=== PATIENT | male | born 1980 | race Hispanic/Latino ===

== ENCOUNTER 2017-08-02 10:52 | Emergency (ER) | payer OTHER ==
[2017-08-02 11:00] VITALS: BMI 24.3
[2017-08-02] MEDS ORDERED: Iohexol 240 (50 ml) PO ONE (12:23)
[2017-08-02] MEDS ORDERED: Iohexol 240 (50 ml) ONE ×2 (12:32→13:02)
[2017-08-02 13:07] LABS: RBC URINE 1 /hpf (0-3); URINE BILIRUBIN NEGATIVE (NEGATIVE); URINE BLOOD NEGATIVE (NEGATIVE); URINE COLOR YELLOW (YELLOW); URINE GLUCOSE (UA) NEG (Normal); URINE KETONE NEGATIVE (NEGATIVE); URINE LEUKOCYTE ESTERASE NEG Leu/uL (Negative); URINE PROTEIN NEGATIVE (NEGATIVE); URINE UROBILINOGEN 0.2-1.0 mg/dL (0.2-1.0); WBC URINE 1 /hpf (0-5)
[2017-08-02 13:09] LABS: BASO % 0.8 % (0.0-2.0); EOS # 0.1 K/uL (0.0-0.7); EOS % 1.1 % (0.0-4.0); LYMPH # 1.5 K/uL (1.0-4.3); LYMPH % 29.5 % (20.0-40.0); MEAN CELL VOLUME 87.8 fl (80.0-94.0); MEAN CORPUSCULAR HEMOGLOBIN 29.4 pg (27.0-31.0); MEAN CORPUSCULAR HGB CONC 33.4 g/dL (33.0-37.0); MEAN PLATELET VOLUME 9.5 fl (7.2-11.7); MONO # 0.5 K/uL (0.0-0.8); MONO % 9.2 % (0.0-10.0); NEUT % 59.4 % (50.0-75.0); NRBC % 0.1 % (0.0-0.0)
[2017-08-02 13:16] LABS: ALB/GLOB RATIO 1.7 (1.0-2.1); ALKALINE PHOSPHATASE 78 U/L (38-126); ALT/SGPT 63 U/L (21-72); AMYLASE 69 U/L (30-110); AST/SGOT 47 U/L (17-59); BILIRUBIN,TOTAL 0.9 mg/dl (0.2-1.3); BLOOD UREA NITROGEN 14 mg/dl (9-20); CALCIUM 9.1 mg/dL (8.4-10.2); CARBON DIOXIDE 29 mmol/L (22-30); CHLORIDE 103 mmol/L (98-107); GFR AFRICAN-AMERICAN > 60; GLUCOSE,RANDOM 88 mg/dL (75-110); LIPASE 94 U/L (23-300); POTASSIUM 4.2 MMOL/L (3.6-5.0); SODIUM 141 mmol/l (132-148); TOTAL PROTEIN 7.3 G/DL (6.3-8.2)
--- NOTE | 2017-08-02 13:37 | ED PDOC ---
HPI: Abdomen Time Seen by Provider: 08/02/17 11:30 Chief Complaint (Nursing): Groin Pain History Per: Patient History/Exam Limitations: no limitations Onset/Duration Of Symptoms: Gradual (3 months worse today) Current Symptoms Are (Timing): Still Present Severity: Mild Location Of Pain/Discomfort: RLQ Quality Of Discomfort: Dull, Aching Associated Symptoms: denies: Fever, Chills, Nausea, Vomiting, Diarrhea, Loss Of Appetite, Back Pain, Chest Pain, Constipation, Urinary Symptoms Exacerbating Factors: Movement Alleviating Factors: None Last Bowel Movement: Today Additional History Per: Patient Additional Complaint(s): c/o pain to his right groin x 3 months, worsened yesterday, plays hockey. Patient was seen in [facility] today, advised ER evaluation to R/O appendicitis. no trauma no genital pain or discharge Past Medical History Reviewed: Historical Data, Nursing Documentation, Vital Signs Vital Signs: Last Vital Signs Temp 97.4 F L 08/02/17 11:00 Pulse 57 L 08/02/17 12:57 Resp 8 L 08/02/17 12:52 BP 114/65 08/02/17 12:57 Pulse Ox 100 08/02/17 13:38 - Medical History PMH: No Chronic Diseases - Family History Family History: States: Unknown Family Hx - Living Arrangements Living Arrangements: With Family - Social History Current smoker - smoking cessation education provided: No Alcohol: None Drugs: Denies - Allergies Allergies/Adverse Reactions: Allergies Allergy/AdvReac Type Severity Reaction Status Date / Time No Known Allergies Allergy Verified 08/02/17 11:17 Review of Systems ROS Statement: Except As Marked, All Systems Reviewed And Found Negative Constitutional: Negative for: Fever, Chills Cardiovascular: Negative for: Chest Pain, Palpitations Respiratory: Negative for: Cough, Shortness of Breath Gastrointestinal: Negative for: Nausea, Vomiting, Abdominal Pain Musculoskeletal: Negative for: Neck Pain Neurological: Negative for: Weakness, Numbness, Headache Physical Exam - Reviewed Nursing Documentation Reviewed: Yes Vital Signs Reviewed: Yes - Physical Exam Appears: Positive for: Well, Uncomfortable Head Exam: Positive for: ATRAUMATIC, NORMAL INSPECTION, NORMOCEPHALIC Skin: Positive for: Normal Color, Warm, Dry Eye Exam: Positive for: Normal appearance, EOMI, PERRL Neck: Positive for: Normal, Painless ROM, Supple Cardiovascular/Chest: Positive for: Regular Rate, Rhythm, Chest Non Tender. Negative for: Edema, Gallop, JVD, Bradycardia, Tachycardia Respiratory: Positive for: Normal Breath Sounds. Negative for: Decreased Breath Sounds, Accessory Muscle Use, Crackles, Rales, Rhonchi, Stridor, Wheezing , Respiratory Distress Gastrointestinal/Abdominal: Positive for: Normal Exam, Bowel Sounds, Soft. Negative for: Tenderness, Organomegaly, Mass, Distended, Guarding, Rebound, Hernia, Asicites Male Genital Exam: Positive for: normal genitalia. Negative for: epididymal tenderness, erythema, scrotum tenderness (R), scrotum tenderness (L), testicular tenderness (R), testicular tenderness (L) Back: Positive for: Normal Inspection. Negative for: L CVA Tenderness, R CVA Tenderness Extremity: Positive for: Normal ROM. 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 Negative for: Motor/Sensory Deficits - Laboratory Results Result Diagrams: 08/02/17 13:01 08/02/17 13:01 - ECG ECG: Positive for: Interpreted By Me ECG Rhythm: Positive for: Normal QRS, Normal ST Segment, Sinus Bradycardia (55) . Negative for: ST/T Changes Interpretation Of Abn EKG: no evidence of ischemia O2 Sat by Pulse Oximetry: 100 Pulse Ox Interpretation: Normal - Progress ED Course And Treament: pt has a near syncopal event shortly after iv placed, ecg nml pt bp dropped to 86 systolic given fluids now all sx gone PROCEDURE: CT scan of the abdomen and pelvis dated 08/02/2017. HISTORY: Right lower quadrant abd pain r/o appy inguinal hernia COMPARISON: No prior study available for comparison TECHNIQUE: Contiguous axial images of the abdomen and pelvis performed of following oral and intravenous injection of approximately 94 cc of Omnipaque 300 contrast material. . Coronal and Sagittal reformats generated. Radiation dose: Total exam DLP = 968.16 mGy-cm. This CT exam was performed using one or more of the following dose reduction techniques: Automated exposure control, adjustment of the mA and/or kV according to patient size, and/or use of iterative reconstruction technique. FINDINGS: LOWER THORAX: Some minor chronic atelectasis or scarring changes both lung bases right greater than left. No focal consolidation effusion or basilar pneumothorax. There is a small hiatal hernia. Slight wall thickening of the distal esophagus likely due to protrusion of gastric mucosa. The heart size is within range of normal. No significant pericardial effusion. LIVER: Liver exhibits normal size measuring approximately 17.2 cm in CC dimension. No obvious hepatic masses or collections. There appears to be some minimal central periportal edema. GALLBLADDER AND BILE DUCTS: Gallbladder is physiologically distended. No evidence of intraluminal gallbladder calculi. PANCREAS: Visualized portions of the pancreas are grossly unremarkable without masses collections nor significant ductal dilatation. SPLEEN: Spleen exhibits normal size and attenuation pattern without masses collections or calcifications. ADRENALS: No adrenal lesions. KIDNEYS AND URETERS: Kidneys demonstrate symmetric nephrograms. No evidence of nephrolithiasis or hydronephrosis. . No obvious renal mass or collection. BLADDER: Urinary bladder is incompletely distended which in part accounts for uniform thick-walled appearance. Muscular hypertrophy contributes. Possibility of a cystitis in a male patient less likely in the absence of a pertinent clinical history however not completely excluded. Correlation with urinalysis. Other intrinsic/invasive wall lesion also less likely though not excluded. REPRODUCTIVE: Prostate gland measures approximately 3.9 cm in greatest transverse dimension. Prostatic calcifications are present. APPENDIX: Very short but grossly normal-appearing appendix best seen on coronal sequence 601 image number [id number]. No obvious periappendiceal inflammatory changes. BOWEL: Evaluation of the bowel is limited due to incomplete opacification. The stomach is under opacified and incompletely distended which in part accounts for thick- walled appearance. Rule out gastritis. Visualized loops of small bowel exhibit normal contour and caliber. No evidence of acute mechanical small bowel obstruction. . PERITONEUM: Unremarkable. No fluid collection. No free air. There is a tiny fat containing umbilical hernia. LYMPH NODES: Few small nonspecific retroperitoneal lymph nodes are felt be present however no significant bulky adenopathy. VASCULATURE: No evidence of abdominal aortic or iliac artery aneurysm. BONES: No fracture or destructive lesion. OTHER FINDINGS: None. IMPRESSION: No evidence of acute appendicitis. No evidence of acute mechanical bowel obstruction. Tiny fat containing umbilical hernia. . Mild wall thickening of the urinary bladder likely due to incomplete distention and muscular hypertrophy. Rule out cystitis. Other intrinsic/invasive wall lesion less likely though not completely excluded. Mildly enlarged prostate gland. Minimal periportal edema. repeat and exam revelas no tenderness Re-evaluation Time: 13:38 Condition: Improved Disposition - Clinical Impression Clinical Impression: Abdominal pain Counseled Patient/Family Regarding: Studies Performed, Need For Followup, Rx Given - Disposition Referrals: All Crowell MD [Staff Provider] - Disposition Time: 15:30 Condition: GOOD Instructions: Abdominal Pain (ED) Forms: [facility] ([place])
--- NOTE | 2017-08-02 14:05 | US ---
HISTORY: right groin pain Duration of symptoms: 3 months. TECHNIQUE: Realtime sonography through the scrotum with color and doppler flow. COMPARISON: None Available. FINDINGS: RIGHT TESTICLE: Measures 2.9 x 3.5 x 5.1 cm. Normal echotexture and flow. RIGHT EPIDIDYMIS: Epididymal head measures 0.9 x 1.0 cm. Grossly unremarkable appearance with normal flow. LEFT TESTICLE: Measures 3.3 x 3 x 4.7 cm. Normal echotexture and flow. LEFT EPIDIDYMIS: Epididymal head measures 0.7 x 1.2 cm. Grossly unremarkable appearance with normal flow. HYDROCELE: None. VARICOCELE: None. OTHER FINDINGS: Morphologically, unremarkable lymph nodes. Right inguinal region only common non larger than 11 mm IMPRESSION: Negative study for epididymitis, orchitis or torsion.Additional benign and/or incidental findings described above.
[2017-08-02] MEDS ORDERED: Iohexol 300 100 ML IJ ONE (15:17)
--- NOTE | 2017-08-02 16:20 | CT ---
PROCEDURE: CT scan of the abdomen and pelvis dated 08/02/2017. HISTORY: Right lower quadrant abd pain r/o appy inguinal hernia COMPARISON: No prior study available for comparison TECHNIQUE: Contiguous axial images of the abdomen and pelvis performed of following oral and intravenous injection of approximately 94 cc of Omnipaque 300 contrast material. . Coronal and Sagittal reformats generated. Radiation dose: Total exam DLP = 968.16 mGy-cm. This CT exam was performed using one or more of the following dose reduction techniques: Automated exposure control, adjustment of the mA and/or kV according to patient size, and/or use of iterative reconstruction technique. FINDINGS: LOWER THORAX: Some minor chronic atelectasis or scarring changes both lung bases right greater than left. No focal consolidation effusion or basilar pneumothorax. There is a small hiatal hernia. Slight wall thickening of the distal esophagus likely due to protrusion of gastric mucosa. The heart size is within range of normal. No significant pericardial effusion. LIVER: Liver exhibits normal size measuring approximately 17.2 cm in CC dimension. No obvious hepatic masses or collections. There appears to be some minimal central periportal edema. GALLBLADDER AND BILE DUCTS: Gallbladder is physiologically distended. No evidence of intraluminal gallbladder calculi. PANCREAS: Visualized portions of the pancreas are grossly unremarkable without masses collections nor significant ductal dilatation. SPLEEN: Spleen exhibits normal size and attenuation pattern without masses collections or calcifications. ADRENALS: No adrenal lesions. KIDNEYS AND URETERS: Kidneys demonstrate symmetric nephrograms. No evidence of nephrolithiasis or hydronephrosis. . No obvious renal mass or collection. BLADDER: Urinary bladder is incompletely distended which in part accounts for uniform thick-walled appearance. Muscular hypertrophy contributes. Possibility of a cystitis in a male patient less likely in the absence of a pertinent clinical history however not completely excluded. Correlation with urinalysis. Other intrinsic/invasive wall lesion also less likely though not excluded. REPRODUCTIVE: Prostate gland measures approximately 3.9 cm in greatest transverse dimension. Prostatic calcifications are present. APPENDIX: Very short but grossly normal-appearing appendix best seen on coronal sequence 601 image number [id number]. No obvious periappendiceal inflammatory changes. BOWEL: Evaluation of the bowel is limited due to incomplete opacification. The stomach is under opacified and incompletely distended which in part accounts for thick-walled appearance. Rule out gastritis. Visualized loops of small bowel exhibit normal contour and caliber. No evidence of acute mechanical small bowel obstruction. . PERITONEUM: Unremarkable. No fluid collection. No free air. There is a tiny fat containing umbilical hernia. LYMPH NODES: Few small nonspecific retroperitoneal lymph nodes are felt be present however no significant bulky adenopathy. VASCULATURE: No evidence of abdominal aortic or iliac artery aneurysm. BONES: No fracture or destructive lesion. OTHER FINDINGS: None. IMPRESSION: No evidence of acute appendicitis. No evidence of acute mechanical bowel obstruction. Tiny fat containing umbilical hernia. . Mild wall thickening of the urinary bladder likely due to incomplete distention and muscular hypertrophy. Rule out cystitis. Other intrinsic/invasive wall lesion less likely though not completely excluded. Mildly enlarged prostate gland. Minimal periportal edema.
[2017-08-02 16:59] VITALS: BP 125/80; PULSE 75; RESP 16; TEMP 97.9; O2SAT 99
== END 2017-08-02 16:59 | disposition home or self-care (01) ==
LOC: H.ER 10:52
DX: R10.31 Right lower quadrant pain (principal); N40.0 Benign prostatic hyperplasia without lower urinary tract symptoms
CPT/HCPCS: 74177; 80053; 81003; 82150; 82948; 83690; 85025; 93975; 99284; Q9966; Q9967